=== PATIENT | male | born 1955 | race Caucasian/White ===

== ENCOUNTER 2022-02-13 13:43 | Observation (INO) | payer OTHER ==
[~2022-02-13] VITALS: Ht 182.9 cm; Wt 104.5 kg
[2022-02-13] MEDS ORDERED: NS 1,000 ML IV ONE (14:40)
[2022-02-13] MEDS ORDERED: ONDANSETRON 4MG 2ML VIAL IV ONE (14:40)
[2022-02-13 15:48] LABS: BASO % 0.2 % (0.0-1.0); HEMATOCRIT 46.3 % (42.0-52.0); HEMOGLOBIN 15.9 g/dl (13.5-17.5); LYMPH # 1.1 10^3/uL (1.5-5.0); LYMPH % 11.1 % (24.0-44.0); MEAN CORPUSCULAR HEMOGLOBIN 30.1 pg (27.0-33.0); MEAN CORPUSCULAR HGB CONC 34.3 g/dl (32.0-36.5); MEAN CORPUSCULAR VOLUME 87.5 fl (80.0-96.0); MONO % 10.2 % (2.0-8.0); NEUTROPHILS # 7.4 10^3/uL (1.5-8.5); NEUTROPHILS % 77.9 % (36.0-66.0); RED BLOOD COUNT 5.29 10^6/uL (4.30-6.10); WHITE BLOOD COUNT 9.5 10^3/uL (4.0-10.0)
[2022-02-13 16:00] LABS: INR 0.95; PROTHROMBIN TIME 13.1 SECONDS (12.7-14.5)
[2022-02-13 16:01] LABS: PARTIAL THROMBOPLASTIN TIME 22.8 SECONDS (25.9-37.0)
[2022-02-13] MEDS ORDERED: PROMETHAZINE 25MG/ML 1ML VIAL IV ONE (16:10)
[2022-02-13 16:15] LABS: ALBUMIN 3.7 GM/DL (3.2-5.2); ALT/SGPT 26 U/L (12-78); BILIRUBIN,DIRECT 0.1 MG/DL (0.0-0.2); BILIRUBIN,TOTAL 0.4 MG/DL (0.2-1.0); BLOOD UREA NITROGEN 16 MG/DL (7-18); CALCIUM LEVEL 8.9 MG/DL (8.8-10.2); CARBON DIOXIDE LEVEL 21 MEQ/L (21-32); CHLORIDE LEVEL 109 MEQ/L (98-107); CREATININE FOR GFR 1.02 MG/DL (0.70-1.30); GLOMERULAR FILTRATION RATE > 60.0 (>49); GLUCOSE, FASTING 165 MG/DL (70-100); LIPASE 121 U/L (73-393); POTASSIUM SERUM 3.8 MEQ/L (3.5-5.1); SODIUM LEVEL 140 MEQ/L (136-145); TOTAL PROTEIN 7.2 GM/DL (6.4-8.2)
[2022-02-13 16:18] LABS: CK-MB VALUE MASS < 1.0 NG/ML (<3.6); CPK CREATINE PHOSPHOKINASE 89 U/L (39-308); MB/CK RELATIVE INDEX 1.12 (< OR =4)
[2022-02-13] MEDS: COMBIVENT RESPIMAT 100-20MCG INHALER 4GM INH SCH ×3 (16:41→17:54)
[2022-02-13] MEDS ORDERED: OMEP1CAP73 PO (21:35)
[2022-02-13] MEDS ORDERED: ZOLO100T PO (21:35)
[2022-02-13] MEDS ORDERED: XARE20TA PO (21:35)
[2022-02-13] MEDS ORDERED: SIMV20TA22 PO (21:35)
[2022-02-13] MEDS ORDERED: AMLO1TAB25 PO (21:35)
[2022-02-13] MEDS ORDERED: BENZ-18 PO (21:35)
[2022-02-13] MEDS ORDERED: AZIT-12 PO (21:35)
[2022-02-13] MEDS ORDERED: ALBU8.5H INH (21:35)
[2022-02-13] MEDS ORDERED: METO1TAB7 PO (21:35)
[2022-02-13] MEDS ORDERED: MEDR4PAK PO (21:35)
[2022-02-13] MEDS ORDERED: ONDANSETRON 4MG 2ML VIAL IV PRN (22:10)
[2022-02-13] MEDS ORDERED: ACETAMINOPHEN 650 MG SUPP PR PRN (22:15)
[2022-02-13] MEDS: NS 1,000 ML IV SCH (22:54)
[2022-02-14] MEDS ORDERED: REMDESIVIR 200 MG in NS 250 ML IV ONE ×2
[2022-02-14] MEDS ORDERED: HEPARIN SOD (PORCINE) 5000UNITS/ML 1ML VIAL/SYRINGE SQ SCH (00:05)
[2022-02-14] MEDS ORDERED: SERTRALINE 100 MG TAB PO SCH (00:23)
[2022-02-14] MEDS ORDERED: SIMVASTATIN 20 MG TAB PO SCH (00:24)
[2022-02-14] MEDS ORDERED: RIVAROXABAN 20MG TAB (XARELTO) PO SCH (00:28)
[2022-02-14] MEDS ORDERED: SODIUM CHLORIDE 0.9% INJ 10 ML SYR IV ONE (02:00)
[2022-02-14 05:48] LABS: PLTBLUE- EDTA FREE CALC 145 K/mm3 (172-450); PLTBLUE- EDTA FREE MACHINE 132 10^3/uL (172-450)
[2022-02-14 06:52] LABS: ALBUMIN 3.2 GM/DL (3.2-5.2); BILIRUBIN,DIRECT 0.1 MG/DL (0.0-0.2); BILIRUBIN,TOTAL 0.5 MG/DL (0.2-1.0); TOTAL PROTEIN 6.2 GM/DL (6.4-8.2)
[2022-02-14] MEDS: NS 1,000 ML IV SCH (08:10)
[2022-02-14 08:52] VITALS: BP 134/84
[2022-02-14] MEDS ORDERED: METOPROLOL SUCC (TopROL XL) 50MG **XL** TAB PO SCH (09:00)
[2022-02-14] MEDS ORDERED: NIRM1TAB PO (09:54)
[2022-02-14 11:34] VITALS: BP 134/78
[2022-02-14] MEDS ORDERED: REMDESIVIR 100 MG in NS 250 ML IV SCH (21:00)
[2022-02-14] MEDS ORDERED: SODIUM CHLORIDE 0.9% INJ 10 ML SYR IV SCH (22:00)
== END 2022-02-14 13:15 | disposition home or self-care (01) ==
LOC: M ED 13:43 → EDBD 13:43 → M ED INP 20:07 → CANRESERV 02-14 09:59 → ENRESERV 02-14 09:59
PROVIDERS: ADMIT Internal Medicine; ATTEND Internal Medicine
DX: U07.1 COVID-19 (principal); R11.2 Nausea with vomiting, unspecified; R50.9 Fever, unspecified; R06.09 Other forms of dyspnea; Z79.899 Other long term (current) drug therapy; Z86.711 Personal history of pulmonary embolism; Z86.718 Personal history of other venous thrombosis and embolism; E78.5 Hyperlipidemia, unspecified; I10 Essential (primary) hypertension; Z88.8 Allergy status to other drugs, medicaments and biological substances
CPT/HCPCS: 36415; 71045; 80047; 80048; 80076; 82550; 82553; 83605; 83690; 85025; 85049; 85610; 85730; 87040; 87077; 87186; 87486; 87581; 87633; 87798; 93005; 93041; 94640; 94664; 96361; 96374; 96375; 96376; 99285; J2405; J2550

== ENCOUNTER → 2022-10-10 | Outpatient (REF) | payer MEDICARE ==
[~2022-10-10] MED LIST: ALBU8.5H INH; AMLO1TAB25 PO; AZIT-12 PO; BENZ-18 PO; MEDR4PAK PO; METO1TAB7 PO; NIRM1TAB PO; OMEP1CAP73 PO; SIMV20TA22 PO; XARE20TA PO; ZOLO100T PO
== END ==
LOC: M LAB REF 16:29
PROVIDERS: ATTEND Physician Assistant
DX: R10.9 Unspecified abdominal pain (principal)

== ENCOUNTER 2023-03-02 13:49 | Emergency (ER) | payer MEDICARE ==
[~2023-03-02] VITALS: Ht 182.9 cm; Wt 100.6 kg
[2023-03-02] MEDS ORDERED: MORPHINE 2 MG/ML 1ML VIAL IV ONE (14:45)
[2023-03-02] MEDS ORDERED: ONDANSETRON 4MG 2ML VIAL IV ONE (14:45)
[2023-03-02 14:52] LABS: BASO # 0.1 10^3/uL (0.0-0.2); BASO % 0.6 % (0.0-1.0); EOS # 0.1 10^3/uL (0.0-0.5); EOS % 1.1 % (0.0-3.0); HEMATOCRIT 42.3 % (42.0-52.0); HEMOGLOBIN 14.4 g/dl (13.5-17.5); LYMPH # 2.5 10^3/uL (1.5-5.0); LYMPH % 24.9 % (24.0-44.0); MEAN CORPUSCULAR HEMOGLOBIN 29.8 pg (27.0-33.0); MEAN CORPUSCULAR VOLUME 87.4 fl (80.0-96.0); MONO # 0.7 10^3/uL (0.0-0.8); MONO % 6.8 % (2.0-8.0); NEUTROPHILS # 6.7 10^3/uL (1.5-8.5); NEUTROPHILS % 65.9 % (36.0-66.0); PLATELET COUNT, AUTOMATED 235 10^3/uL (150-450); RED BLOOD COUNT 4.84 10^6/uL (4.30-6.10); WHITE BLOOD COUNT 10.2 10^3/uL (4.0-10.0)
[2023-03-02 15:11] LABS: LIPASE 33 U/L (12-53)
[2023-03-02 15:13] LABS: ALBUMIN 3.3 G/DL (3.2-5.2); ALKALINE PHOSPHATASE 96 U/L (46-116); ALT/SGPT < 9 U/L (7.0-40); AST/SGOT 12 U/L (<34); BILIRUBIN,DIRECT 0.1 MG/DL (<0.4); BILIRUBIN,TOTAL 0.3 MG/DL (0.3-1.2); TOTAL PROTEIN 6.5 G/DL (5.7-8.2)
[2023-03-02] MEDS ORDERED: ISOVUE-370 76% 100ML VIAL As Ordered ONE (15:15)
[2023-03-02 17:44] LABS: MONO REFLEX EBV COMP NEGATIVE (NEGATIVE)
[2023-03-02 18:11] VITALS: BP 116/67; TEMP 98.2; O2SAT 95
[2023-03-04 16:08] LABS: EBV AB TO NUCLEAR ANTIGEN <18.0 U/mL (0.0-17.9); EBV VIRAL CAPSID AG IgM <36.0 U/mL (0.0-35.9)
== END 2023-03-02 18:13 | disposition home or self-care (01) ==
LOC: M ED 13:49
DX: R10.9 Unspecified abdominal pain (principal); I10 Essential (primary) hypertension; Z87.19 Personal history of other diseases of the digestive system; Z86.711 Personal history of pulmonary embolism; Z86.718 Personal history of other venous thrombosis and embolism; Z86.79 Personal history of other diseases of the circulatory system; Z88.8 Allergy status to other drugs, medicaments and biological substances; Z79.52 Long term (current) use of systemic steroids; Z79.83 Long term (current) use of bisphosphonates; Z79.899 Other long term (current) drug therapy
CPT/HCPCS: 74178; 80047; 80076; 81001; 83690; 85025; 86308; 86664; 86665; 96374; 96375; 99284; J2405; Q9967

== ENCOUNTER 2023-07-15 06:19 | Day surgery (SDC) | payer MEDICARE ==
[~2023-07-15] VITALS: Ht 182.9 cm; Wt 98.2 kg
[2023-07-15] MEDS: NS 1,000 ML IV ONE (06:00)
[~2023-07-15 06:19] MED LIST changes: +ONDA4TAB6 PO; +PANT20TA6 PO
[2023-07-15] MEDS ORDERED: fentaNYL 100 MCG/2 ML INJECTION As Ordered ONE (06:56)
[2023-07-15] MEDS ORDERED: propofoL 200 MG/20 ML VIAL As Ordered ONE (07:00)
[2023-07-15] MEDS ORDERED: LIDOCAINE 2% 100MG/5ML SDV (FOR ANES.) As Ordered ONE (07:00)
[2023-07-15] MEDS ORDERED: SIMETHICONE 40MG/0.6ML DROPS 30ML As Ordered ONE (07:11)
[2023-07-15] MEDS ORDERED: ePHEDrine SULFATE 25 MG/5 ML(5MG/ML) SYRINGE As Ordered ONE (07:51)
[2023-07-15 08:35] VITALS: BP 126/80; O2SAT 96
== END 2023-07-15 08:42 | disposition home or self-care (01) ==
LOC: M OPP 06:19
PROVIDERS: ATTEND Internal Medicine Gastroenterology
DX: Z12.11 Encounter for screening for malignant neoplasm of colon (principal); Z12.12 Encounter for screening for malignant neoplasm of rectum; D12.3 Benign neoplasm of transverse colon; K21.00 Gastro-esophageal reflux disease with esophagitis, without bleeding; R10.13 Epigastric pain; K64.8 Other hemorrhoids; K64.4 Residual hemorrhoidal skin tags; K57.30 Diverticulosis of large intestine without perforation or abscess without bleeding; K29.70 Gastritis, unspecified, without bleeding; K22.89 Other specified disease of esophagus; I10 Essential (primary) hypertension; E78.00 Pure hypercholesterolemia, unspecified; Z86.711 Personal history of pulmonary embolism; Z86.718 Personal history of other venous thrombosis and embolism; Z79.899 Other long term (current) drug therapy; Z79.01 Long term (current) use of anticoagulants; Z88.8 Allergy status to other drugs, medicaments and biological substances
CPT/HCPCS: 43239; 45385; 88305; J3010

== ENCOUNTER → 2023-08-13 | Outpatient (REF) | payer MEDICARE | LOC: M LAB REF 11:38 | PROVIDERS: ATTEND Nurse Practitioner Family | DX: R19.7 Diarrhea, unspecified (principal) ==

== ENCOUNTER → 2024-02-11 | Outpatient (CLI) | payer MEDICARE ==
[~2024-02-11] MED LIST changes: +ONDA-282 PO; -ONDA4TAB6 PO
[2024-02-11 10:15] LABS: BASO # 0.1 10^3/uL (0.0-0.2); EOS # 0.2 10^3/uL (0.0-0.5); EOS % 1.4 % (0.0-3.0); HEMATOCRIT 47.2 % (42.0-52.0); HEMOGLOBIN 15.5 g/dl (13.5-17.5); LYMPH # 2.8 10^3/uL (1.5-5.0); LYMPH % 27.3 % (24.0-44.0); MEAN CORPUSCULAR HEMOGLOBIN 29.3 pg (27.0-33.0); MEAN CORPUSCULAR HGB CONC 32.8 g/dl (32.0-36.5); MEAN CORPUSCULAR VOLUME 89.2 fl (80.0-96.0); MONO # 0.9 10^3/uL (0.0-0.8); MONO % 8.6 % (2.0-8.0); NEUTROPHILS # 6.3 10^3/uL (1.5-8.5); PLATELET COUNT, AUTOMATED 220 10^3/uL (150-450); RED BLOOD COUNT 5.29 10^6/uL (4.30-6.10); WHITE BLOOD COUNT 10.4 10^3/uL (4.0-10.0)
[2024-02-11 10:40] LABS: PSA SCREENING 0.74 NG/ML (< 4.00)
[2024-02-11 10:42] LABS: ALBUMIN 3.7 G/DL (3.2-5.2); ALKALINE PHOSPHATASE 84 U/L (46-116); ALT/SGPT 17 U/L (7.0-40); AST/SGOT 12 U/L (<34); BILIRUBIN,TOTAL 0.5 MG/DL (0.3-1.2); BLOOD UREA NITROGEN 16 MG/DL (9-23); CALCIUM LEVEL 9.3 MG/DL (8.3-10.6); CARBON DIOXIDE LEVEL 30 MMOL/L (20-31); CHLORIDE LEVEL 108 MMOL/L (98-107); CHOLESTEROL LEVEL 133 MG/DL (<200); CHOLESTEROL RISK RATIO 2.85 (<5); CREATININE FOR GFR 0.93 MG/DL (0.70-1.30); GLOMERULAR FILTRATION RATE > 60.0 (>49); GLUCOSE, FASTING 108 MG/DL (74-106); HDL CHOLESTEROL 46.6 MG/DL (>40); LDL CHOLESTEROL 58.6 MG/DL (<100); NON-HDL-C 86.4 MG/DL; POTASSIUM SERUM 4.4 MMOL/L (3.5-5.1); SODIUM LEVEL 141 MMOL/L (136-145); TOTAL PROTEIN 7.1 G/DL (5.7-8.2); TRIGLYCERIDES LEVEL 139 MG/DL (<150)
[2024-02-11 10:44] LABS: FREE T4 0.96 NG/DL (0.89-1.76); THYROID STIMULATING HORMONE 3.297 uIU/ML (0.55-4.78)
[2024-02-11 10:48] LABS: HEMOGLOBIN A1c 5.9 % (4.0-6.0)
== END ==
LOC: M WUC 08:28
PROVIDERS: ATTEND Internal Medicine
DX: E78.5 Hyperlipidemia, unspecified (principal); E66.9 Obesity, unspecified; Z68.30 Body mass index [BMI] 30.0-30.9, adult; Z12.5 Encounter for screening for malignant neoplasm of prostate; I10 Essential (primary) hypertension; K21.9 Gastro-esophageal reflux disease without esophagitis; Z79.899 Other long term (current) drug therapy
CPT/HCPCS: 36415; 80053; 80061; 83036; 84439; 84443; 85025; G0103

== ENCOUNTER 2024-09-05 06:35 | Emergency (ER) | payer MEDICARE ==
[~2024-09-05] VITALS: Ht 182.9 cm; Wt 107.0 kg
[2024-09-05] MEDS: ACETAMINOPHEN 325 MG TAB PO ONE (08:14)
[2024-09-05] MEDS: traMADol 50 MG TAB PO ONE (09:22)
[2024-09-05] MEDS ORDERED: TRAM50TA2 PO (10:19)
[2024-09-05 10:30] VITALS: BP 117/66; TEMP 97.2; O2SAT 95
== END 2024-09-05 10:46 | disposition home or self-care (01) ==
LOC: M ED 06:35
DX: S20.212A Contusion of left front wall of thorax, initial encounter (principal); X58.XXXA Exposure to other specified factors, initial encounter; Y92.009 Unspecified place in unspecified non-institutional (private) residence as the place of occurrence of the external cause; Y93.89 Activity, other specified; Y99.9 Unspecified external cause status; I10 Essential (primary) hypertension; E78.5 Hyperlipidemia, unspecified; K21.9 Gastro-esophageal reflux disease without esophagitis; Z86.711 Personal history of pulmonary embolism; Z79.01 Long term (current) use of anticoagulants; Z12.10 Encounter for screening for malignant neoplasm of intestinal tract, unspecified; Z79.899 Other long term (current) drug therapy; Z88.8 Allergy status to other drugs, medicaments and biological substances

== ENCOUNTER → 2024-11-23 | Outpatient (CLI) | payer MEDICARE, MEDICAID ==
[~2024-11-23] MED LIST changes: +TRAM50TA2 PO
== END ==
LOC: M WUC 08:16
PROVIDERS: ATTEND Family Medicine
DX: M47.814 Spondylosis without myelopathy or radiculopathy, thoracic region (principal)